=== PATIENT | male | born 1985 | race Asian ===

== ENCOUNTER 2020-05-27 13:44 | Emergency (ER) | payer SELFPAY ==
[~2020-05-27] VITALS: Ht 172.7 cm; Wt 63.0 kg
[2020-05-27 13:49] VITALS: BP 132/76
[2020-05-27] MEDS ORDERED: PERTUSS(ACELL),DIPH,TET VAC/PF 0.5 ML VIAL IM ONE (15:15)
[2020-05-27] MEDS ORDERED: IBUPROFEN 600 MG TABLET PO ONE (15:15)
== END 2020-05-27 16:54 | disposition home or self-care (01) ==
LOC: EMS 13:44
DX: S90.31XA Contusion of right foot, initial encounter (principal); W18.39XA Other fall on same level, initial encounter; Y93.89 Activity, other specified; Y92.89 Other specified places as the place of occurrence of the external cause; Y99.8 Other external cause status
CPT/HCPCS: 90471; 90715

== ENCOUNTER 2020-06-18 09:47 | Emergency (ER) | payer MEDICAID ==
[~2020-06-18] VITALS: Ht 172.7 cm; Wt 63.0 kg
[2020-06-18] MEDS ORDERED: POVIDONE-IODINE 10% 15 ML SOLUTION UD TP ONE (10:30)
[2020-06-18] MEDS ORDERED: LIDOCAINE 1% 10 ML VIAL SQ ONE (10:30)
[2020-06-18 11:15] VITALS: BP 146/88
== END 2020-06-18 11:30 | disposition home or self-care (01) ==
LOC: EMS 09:49
DX: L02.31 Cutaneous abscess of buttock (principal); L72.3 Sebaceous cyst; F17.210 Nicotine dependence, cigarettes, uncomplicated
CPT/HCPCS: 10060; 99282; J3490

== ENCOUNTER 2020-08-08 15:51 | Emergency (ER) | payer MEDICAID ==
[~2020-08-08] VITALS: Ht 170.2 cm; Wt 76.0 kg
[2020-08-08 16:38] LABS: APPEARANCE,URINE CLEAR (CLEAR); BILIRUBIN,URINE NEGATIVE (NEGATIVE); GLUCOSE, URINE (UA) NEGATIVE (NEGATIVE); KETONES,URINE NEGATIVE (NEGATIVE); LEUKOCYTE ESTERASE ,URINE NEGATIVE (NEGATIVE); NITRATE,URINE NEGATIVE (NEGATIVE); OCCULT BLOOD,URINE NEGATIVE (NEGATIVE); PROTEIN,URINE NEGATIVE (NEGATIVE)
[2020-08-08 18:00] VITALS: BP 126/72
== END 2020-08-08 18:20 | disposition home or self-care (01) ==
LOC: EMS 15:51
DX: R30.0 Dysuria (principal); F17.210 Nicotine dependence, cigarettes, uncomplicated
CPT/HCPCS: 99283

== ENCOUNTER 2020-08-24 13:41 | Emergency (ER) | payer MEDICAID ==
[~2020-08-24] VITALS: Ht 167.6 cm; Wt 68.2 kg
[2020-08-24 16:13] VITALS: BP 115/62
== END 2020-08-24 16:35 | disposition home or self-care (01) ==
LOC: EMS 13:43
DX: R07.9 Chest pain, unspecified (principal); F41.9 Anxiety disorder, unspecified; F17.210 Nicotine dependence, cigarettes, uncomplicated
CPT/HCPCS: 93005; 99285; 71046; 71046-TC

== ENCOUNTER 2020-09-25 16:38 | Emergency (ER) | payer MEDICAID ==
[~2020-09-25] VITALS: Ht 172.7 cm; Wt 70.0 kg
[2020-09-25 16:45] VITALS: BP 110/62
== END 2020-09-25 18:09 | disposition home or self-care (01) ==
LOC: EMS 16:41
DX: S93.602A Unspecified sprain of left foot, initial encounter (principal); X58.XXXA Exposure to other specified factors, initial encounter; Y93.89 Activity, other specified; Y92.89 Other specified places as the place of occurrence of the external cause; Y99.8 Other external cause status
CPT/HCPCS: 99283

== ENCOUNTER 2021-03-17 18:46 | Emergency (ER) | payer MEDICAID ==
[~2021-03-17] VITALS: Ht 172.7 cm; Wt 68.2 kg
[2021-03-17 19:34] LABS: COVID AG,FIA SOURCE NASOPHARYNGEAL
[2021-03-17] MEDS ORDERED: IBUPROFEN 600 MG TABLET PO ONE (19:45)
[2021-03-17 20:09] LABS: INFLUENZA TYPE A NEGATIVE FOR TYPE A (NEGATIVE); INFLUENZA TYPE B NEGATIVE FOR TYPE B (NEGATIVE)
[2021-03-17 20:21] VITALS: BP 115/85
== END 2021-03-17 21:15 | disposition home or self-care (01) ==
LOC: EMS 18:46
DX: R50.9 Fever, unspecified (principal); M79.10 Myalgia, unspecified site; R53.83 Other fatigue; F17.210 Nicotine dependence, cigarettes, uncomplicated; Z20.822 Contact with and (suspected) exposure to COVID-19
CPT/HCPCS: 87426; 87804; 99283; U0003

== ENCOUNTER 2022-09-05 01:36 | Emergency (ER) | payer MEDICAID ==
[~2022-09-05] VITALS: Ht 172.7 cm; Wt 71.4 kg
[2022-09-05] MEDS ORDERED: KETOROLAC TROMETHAMINE 30 MG/ML VIAL IM ONE (03:15)
[2022-09-05 03:30] VITALS: BP 116/69
[2022-09-05] MEDS ORDERED: KETOROLAC TROMETHAMINE 60 MG/2 ML VIAL IM ONE (03:45)
== END 2022-09-05 04:49 | disposition home or self-care (01) ==
LOC: EMS 01:40
DX: S39.011A Strain of muscle, fascia and tendon of abdomen, initial encounter (principal); F17.210 Nicotine dependence, cigarettes, uncomplicated; Z98.890 Other specified postprocedural states; X50.0XXA Overexertion from strenuous movement or load, initial encounter; Y93.89 Activity, other specified; Y92.89 Other specified places as the place of occurrence of the external cause; Y99.8 Other external cause status
CPT/HCPCS: 99283; 96372; J1885

== ENCOUNTER 2022-12-11 21:09 | Emergency (ER) | payer MEDICAID, OTHER ==
[~2022-12-11] VITALS: Ht 172.7 cm; Wt 75.0 kg
[2022-12-11 21:17] VITALS: TEMP 98.7
[2022-12-11 21:40] VITALS: BP 128/88; PULSE 65; RESP 15
[2022-12-11] MEDS ORDERED: NITROGLYCERIN 2% (1 GM=INCH) OINTMENT PACKET TP ONE (22:00)
[2022-12-11] MEDS ORDERED: ASPIRIN 81 MG CHEWABLE TABLET PO ONE (22:00)
[2022-12-11 22:21] LABS: HEMOGLOBIN 15.9 g/dL (13.5-17.5); LYMPHOCYTES # (AUTO) 2.8 K/uL (1.0-4.8)
[2022-12-11 22:24] LABS: BASOPHILS % (AUTO) 1.1 % (0.0-2.0); EOSINOPHILS % (AUTO) 5.1 % (1.0-6.0); HEMATOCRIT 46.6 % (41-53); LYMPHOCYTES % (AUTO) 39.6 % (22.0-44.0); MEAN CORPUSCULAR HEMOGLOBIN 33.1 pg (26.0-34.0); MEAN CORPUSCULAR HGB CONC 34.2 G/dL (31.0-37.0); MEAN CORPUSCULAR VOLUME 97 fL (80-100); MONOCYTES # (AUTO) 0.7 K/uL (0.1-1.0); MONOCYTES % (AUTO) 10.7 % (2.0-9.0); NEUTROPHILS # (AUTO) 3.1 K/uL (1.8-7.7); NEUTROPHILS % (AUTO) 43.5 % (40.0-70.0); PLATELET COUNT (AUTO) 193 K/uL (150-450); RED BLOOD CELL COUNT(AUTO) 4.81 MIL/uL (4.50-5.90); RED CELL DISTRIBUTION WIDTH 13.6 % (11.5-14.5)
[2022-12-11 22:30] LABS: ANION GAP 7 mmol/L (8-16); CARBON DIOXIDE 27 mmol/L (22-29); CHLORIDE 100 mmol/L (98-107); CREATININE 0.74 mg/dL (0.60-1.30); GLOMERULAR FILTR. RATE CALC > 60 mL/min (>60); GLUCOSE,RANDOM 121 mg/dL (70-110); POTASSIUM 3.6 mmol/L (3.5-5.1); SODIUM SERUM 134 mmol/L (136-145)
[2022-12-11] MEDS ORDERED: IBUP-1492 PO (22:52)
[2022-12-11] MEDS ORDERED: IBUPROFEN 600 MG TABLET PO ONE (23:00)
== END 2022-12-11 23:32 | disposition home or self-care (01) ==
LOC: EMS 21:10
DX: R07.89 Other chest pain (principal); F17.210 Nicotine dependence, cigarettes, uncomplicated; Z98.890 Other specified postprocedural states
CPT/HCPCS: 71045; 80048; 84484; 85025; 93005; 99291; 36415-L1; 36415-TC

== ENCOUNTER 2023-02-06 21:00 | Emergency (ER) | payer OTHER ==
[~2023-02-06] VITALS: Ht 165.1 cm; Wt 75.0 kg
[~2023-02-06 21:00] MED LIST: IBUP-1492 PO
[2023-02-06 21:11] VITALS: TEMP 98.2
[2023-02-06 21:33] VITALS: BP 132/84; PULSE 85; RESP 16
[2023-02-06] MEDS ORDERED: KETOROLAC TROMETHAMINE 30 MG/ML VIAL IM ONE (23:15)
[2023-02-06] MEDS ORDERED: IBUP-1492 PO (23:16)
[2023-02-06] MEDS ORDERED: KETOROLAC TROMETHAMINE 60 MG/2 ML VIAL IM ONE (23:30)
== END 2023-02-06 23:59 | disposition home or self-care (01) ==
LOC: EMS 21:03
DX: M77.8 Other enthesopathies, not elsewhere classified (principal); F17.210 Nicotine dependence, cigarettes, uncomplicated; Z98.890 Other specified postprocedural states
CPT/HCPCS: 99283; 73030; 96372; J1885

== ENCOUNTER 2023-10-30 15:09 | Emergency (ER) | payer OTHER ==
[~2023-10-30] VITALS: Ht 170.2 cm; Wt 84.1 kg
[2023-10-30 15:13] VITALS: BP 108/67; PULSE 92; RESP 18; TEMP 98.1
== END 2023-10-30 16:11 | disposition left against medical advice (07) ==
LOC: EMS 15:09
DX: M54.2 Cervicalgia (principal); F17.210 Nicotine dependence, cigarettes, uncomplicated; Z53.21 Procedure and treatment not carried out due to patient leaving prior to being seen by health care provider

== ENCOUNTER 2023-12-03 19:32 | Emergency (ER) | payer OTHER ==
[~2023-12-03] VITALS: Ht 172.7 cm; Wt 77.0 kg
[2023-12-03 19:45] VITALS: BP 103/57; PULSE 82; RESP 18; TEMP 97.6
[2023-12-03] MEDS ORDERED: IBUP-45 PO (19:48)
[2023-12-03] MEDS: METHOCARBAMOL 500 MG TABLET PO ONE (22:49)
[2023-12-03] MEDS: KETOROLAC TROMETHAMINE 60 MG/2 ML VIAL IM ONE (22:49)
[2023-12-03] MEDS: ACETAMINOPHEN 500 MG TABLET PO ONE (22:50)
[2023-12-03] MEDS ORDERED: METH-659 PO (23:06)
[2023-12-03] MEDS ORDERED: IBUP-1554 PO (23:06)
[2023-12-03] MEDS ORDERED: HYDR-4062 PO (23:06)
== END 2023-12-03 23:22 | disposition home or self-care (01) ==
LOC: EMS 19:32
DX: S39.012A Strain of muscle, fascia and tendon of lower back, initial encounter (principal); X58.XXXA Exposure to other specified factors, initial encounter; Y93.89 Activity, other specified; Y92.89 Other specified places as the place of occurrence of the external cause; Y99.8 Other external cause status
CPT/HCPCS: 99283; 72100; 96372; J1885

== ENCOUNTER 2024-03-10 17:03 | Emergency (ER) | payer OTHER ==
[~2024-03-10] VITALS: Ht 172.7 cm; Wt 77.3 kg
[~2024-03-10 17:03] MED LIST changes: +HYDR-4062 PO; -IBUP-1492 PO; +IBUP-1554 PO; +IBUP-45 PO; +METH-659 PO
[2024-03-10 17:11] VITALS: TEMP 98.6
[2024-03-10 18:39] VITALS: BP 108/74; PULSE 84; RESP 18; O2SAT 99
[2024-03-10] MEDS ORDERED: ACET-66 PO (18:56)
[2024-03-10] MEDS: METHOCARBAMOL 500 MG TABLET PO ONE (19:06)
[2024-03-10] MEDS: IBUPROFEN 600 MG TABLET PO ONE (19:06)
[2024-03-10] MEDS: ACETAMINOPHEN 500 MG TABLET PO ONE (19:06)
== END 2024-03-10 19:14 | disposition home or self-care (01) ==
LOC: EMS 17:03
DX: F43.9 Reaction to severe stress, unspecified (principal); F17.210 Nicotine dependence, cigarettes, uncomplicated; V89.2XXA Person injured in unspecified motor-vehicle accident, traffic, initial encounter; Y93.89 Activity, other specified; Y92.410 Unspecified street and highway as the place of occurrence of the external cause; Y99.8 Other external cause status
CPT/HCPCS: 99284; Z7502; Z7610

== ENCOUNTER 2024-05-06 04:43 | Emergency (ER) | payer OTHER ==
[~2024-05-06] VITALS: Ht 172.7 cm; Wt 77.3 kg
[~2024-05-06 04:43] MED LIST changes: +ACET-66 PO; -HYDR-4062 PO; -IBUP-45 PO
[2024-05-06 05:29] LABS: BASOPHILS % (AUTO) 1.4 % (0.0-2.0); EOSINOPHILS % (AUTO) 3.6 % (1.0-6.0); HEMATOCRIT 45.7 % (41-53); HEMOGLOBIN 16.1 g/dL (13.5-17.5); LYMPHOCYTES # (AUTO) 1.9 K/uL (1.0-4.8); LYMPHOCYTES % (AUTO) 29.2 % (22.0-44.0); MEAN CORPUSCULAR HEMOGLOBIN 33.2 pg (26.0-34.0); MEAN CORPUSCULAR HGB CONC 35.3 G/dL (31.0-37.0); MEAN CORPUSCULAR VOLUME 94 fL (80-100); MONOCYTES # (AUTO) 0.6 K/uL (0.1-1.0); MONOCYTES % (AUTO) 8.9 % (2.0-9.0); NEUTROPHILS # (AUTO) 3.7 K/uL (1.8-7.7); NEUTROPHILS % (AUTO) 56.9 % (40.0-70.0); PLATELET COUNT (AUTO) 193 K/uL (150-450); RED BLOOD CELL COUNT(AUTO) 4.87 MIL/uL (4.50-5.90); RED CELL DISTRIBUTION WIDTH 13.4 % (11.5-14.5); WHITE BLOOD COUNT (AUTO) 6.5 K/uL (4.5-11.0)
[2024-05-06 05:35] LABS: ANION GAP 7 mmol/L (8-16); CALCIUM, TOTAL 8.6 mg/dL (8.8-10.5); CARBON DIOXIDE 31 mmol/L (22-29); CHLORIDE 97 mmol/L (98-107); CREATININE 0.92 mg/dL (0.60-1.30); GLOMERULAR FILTR. RATE CALC > 60 mL/min (>60); GLUCOSE,RANDOM 251 mg/dL (70-110); POTASSIUM 3.7 mmol/L (3.5-5.1); SODIUM SERUM 135 mmol/L (136-145); UREA NITROGEN, BLOOD 10 mg/dL (7-18)
[2024-05-06 06:42] VITALS: BP 137/74; PULSE 72; RESP 18; TEMP 97.3; O2SAT 98
[2024-05-06] MEDS ORDERED: [UNRECOGNIZED DRUG - CODE] IH (07:00)
[2024-05-06] MEDS ORDERED: METF-81 PO (07:00)
== END 2024-05-06 07:39 | disposition home or self-care (01) ==
LOC: EMS 04:45
DX: E11.65 Type 2 diabetes mellitus with hyperglycemia (principal); F17.210 Nicotine dependence, cigarettes, uncomplicated; Z98.890 Other specified postprocedural states
CPT/HCPCS: 80048; 82962; 83036; 85025; 99283

== ENCOUNTER 2024-05-27 12:00 | Emergency (ER) | payer OTHER ==
[~2024-05-27] VITALS: Ht 162.6 cm; Wt 68.2 kg
[~2024-05-27 12:00] MED LIST changes: +METF-81 PO; +[UNRECOGNIZED DRUG - CODE] IH
[2024-05-27 12:02] VITALS: BP 122/86; PULSE 84; RESP 18; TEMP 97.9; O2SAT 99
[2024-05-27] MEDS ORDERED: NICO-703 TD (12:46)
[2024-05-27] MEDS ORDERED: CETI-450 PO (12:46)
[2024-05-27] MEDS ORDERED: CLOT15CR23 TP (16:22)
== END 2024-05-27 13:02 | disposition home or self-care (01) ==
LOC: EMS 12:00
DX: R51.9 Headache, unspecified (principal); J34.89 Other specified disorders of nose and nasal sinuses; F17.290 Nicotine dependence, other tobacco product, uncomplicated
CPT/HCPCS: 99282; 99406; Z7502

== ENCOUNTER 2024-05-27 15:59 | Emergency (ER) | payer OTHER ==
[~2024-05-27] VITALS: Ht 162.6 cm; Wt 68.2 kg
[~2024-05-27 15:59] MED LIST changes: +CETI-450 PO; +NICO-703 TD
[2024-05-27 16:03] VITALS: TEMP 98.2
[2024-05-27 16:12] VITALS: BP 121/76; PULSE 74; RESP 16; O2SAT 99
[2024-05-27] MEDS ORDERED: CLOT15CR23 TP (16:22)
== END 2024-05-27 18:04 | disposition home or self-care (01) ==
LOC: EMS 15:59
DX: L30.9 Dermatitis, unspecified (principal); R51.9 Headache, unspecified
CPT/HCPCS: 82962; 99282; Z7502

== ENCOUNTER 2024-12-15 17:03 | Emergency (ER) | payer OTHER ==
[~2024-12-15] VITALS: Ht 172.7 cm; Wt 75.0 kg
[~2024-12-15 17:03] MED LIST changes: -ACET-66 PO; +CETI-432 PO; -CETI-450 PO; +CLOT15CR23 TP; -IBUP-1554 PO; -METF-81 PO; -METH-659 PO; -[UNRECOGNIZED DRUG - CODE] IH
[2024-12-15 17:05] VITALS: BP 100/69; PULSE 83; RESP 16; TEMP 98.5; O2SAT 98
== END 2024-12-15 23:12 | disposition home or self-care (01) ==
LOC: EMS 17:30
DX: L72.8 Other follicular cysts of the skin and subcutaneous tissue (principal); Y92.89 Other specified places as the place of occurrence of the external cause
CPT/HCPCS: 99282; Z7502